=== PATIENT | male | born 1965 | race African-American/Black ===

== ENCOUNTER 2025-09-08 15:25 | Emergency (ER) | payer SELFPAY ==
[~2025-09-08] VITALS: Ht 185.4 cm; Wt 91.0 kg
[2025-09-08 15:28] VITALS: TEMP 37; O2SAT 99
[2025-09-08 19:17] VITALS: BP 109/75; PULSE 71; RESP 12; O2SAT 100
== END 2025-09-08 19:23 | disposition home or self-care (01) ==
LOC: ER 15:25
DX: Z00.00 Encounter for general adult medical examination without abnormal findings (principal); F15.90 Other stimulant use, unspecified, uncomplicated; Z59.01 Sheltered homelessness
CPT/HCPCS: 99283